=== PATIENT | female | born 1980 | race Caucasian/White ===

== ENCOUNTER 2021-10-19 13:04 | Emergency (ER) | payer BC, SELFPAY ==
[~2021-10-19] VITALS: Ht 165.1 cm; Wt 72.6 kg
--- NOTE | 2021-10-19 13:06 | NUR ---
Pt brought by self, A&Ox4,pt presents to ER with L flank pain since today, afebrile, skin pink and warm, cap refill <3, VSS, respirations even and unlabored.
--- NOTE | 2021-10-19 13:21 | NUR ---
DR MANCILLA AT BEDSIDE FOR EXAM
[2021-10-19 13:22] VITALS: BP_SYST 107
[2021-10-19 13:48] LABS: BILIRUBIN,URINE 1+ (NEGATIVE); BLOOD, URINE 2+ (NEGATIVE); CLARITY/URINE TURBID (CLEAR); COLOR,URINE YELLOW (YELLOW); GLUCOSE,URINE NEGATIVE (NEGATIVE); KETONES,URINE NEGATIVE (NEGATIVE); LEUKOCYTE ESTERASE ,URINE TRACE (NEGATIVE); NITRITE, URINE POSITIVE (NEGATIVE); PROTEIN URINE 1+ (NEGATIVE); UROBILINOGEN,URINE 0.2 (0.2-1.0)
[2021-10-19 13:59] LABS: BACTERIA,URINE MANY /HPF (None Seen)
[2021-10-19 14:00] LABS: MUCUS,URINE 1+ /LPF (None Seen)
[2021-10-19 15:21] LABS: BASOPHILS % (AUTO) 0.9 % (0.0-2.0); EOSINOPHILS % (AUTO) 0.5 % (0.0-4.0); HEMATOCRIT 44.2 % (36-48); HEMOGLOBIN 15.4 g/dL (12.0-16.0); LYMPHOCYTES # (AUTO) 1.2 K/uL (1.0-5.5); LYMPHOCYTES % (AUTO) 27.3 % (20.5-51.5); MEAN CORPUSCULAR HEMOGLOBIN 31 pg (27-31); MEAN CORPUSCULAR HGB CONC 35 % (32-36); MEAN CORPUSCULAR VOLUME 90 fL (79.0-98.0); MONOCYTES # (AUTO) 0.5 K/uL (0.0-1.0); MONOCYTES % (AUTO) 10.2 % (1.7-9.3); NEUTROPHILS # (AUTO) 2.8 K/uL (1.8-7.7); NEUTROPHILS % (AUTO) 61.1 % (40.0-70.0); PLATELET COUNT (AUTO) 254 K/uL (130-430); RED BLOOD CELL COUNT(AUTO) 4.89 MIL/uL (4.2-6.2); RED CELL DISTRIBUTION WIDTH 12.2 % (9.0-15.0); WHITE BLOOD COUNT (AUTO) 4.5 K/uL (4.8-10.8)
[2021-10-19] MEDS ORDERED: NITR-85 PO (15:43)
[2021-10-19] MEDS ORDERED: IBUP-1969 PO (15:43)
[2021-10-19] MEDS ORDERED: cefTRIAXone 1 GM in LIDOCAINE 1%, 20 ML MDV 2.1 ML IM ONE (15:45)
[2021-10-19 15:52] LABS: CALCIUM 8.8 mg/dL (8.4-11.0); CREATININE 0.61 mg/dL (0.55-1.30); POTASSIUM 3.6 mmol/L (3.5-5.1)
[2021-10-19 15:56] LABS: ALBUMIN 3.8 g/dL (3.4-4.8); TOTAL BILIRUBIN 0.5 mg/dL (0.0-1.0)
--- NOTE | 2021-10-19 16:26 | NUR ---
Patient given written and verbal discharge instructions and verbalizes understanding. ER MD discussed with patient the results and treatment provided. Patient in stable condition. ID arm band removed. IV catheter removed intact and dressing applied, no active bleeding. Rx of IBUPROFEN, NITROFURANTOIN given. Patient educated on pain management and to follow up with PMD. Pain Scale . Opportunity for questions provided and answered. Medication side effect fact sheet provided.
[2021-10-19 16:28] VITALS: BP_SYST 107
== END 2021-10-19 16:28 | disposition home or self-care (01) ==
LOC: SED 13:04
DX: N12 Tubulo-interstitial nephritis, not specified as acute or chronic (principal); N83.202 Unspecified ovarian cyst, left side; E03.9 Hypothyroidism, unspecified; Z88.0 Allergy status to penicillin
CPT/HCPCS: 36415; 74176; 76376; 80053; 81000; 81003; 81025; 83690; 85025; 87086; 96372; 99284; J0696; J2001

== ENCOUNTER 2022-01-09 16:38 | Emergency (ER) | payer BC ==
[~2022-01-09] VITALS: Ht 165.1 cm; Wt 74.8 kg
[~2022-01-09 16:38] MED LIST: IBUP-1969 PO; NITR-85 PO
[2022-01-09 16:40] VITALS: BP_SYST 123
--- NOTE | 2022-01-09 16:40 | NUR ---
BROUGHT BACK TO BED #5 AND TRIAGED. REPORT GIVEN TO RAMON
--- NOTE | 2022-01-09 17:00 | NUR ---
Patient AAOx4 from home c/o midline lower back pain at the tailbone x3 days. Patient states she has had this pain in the past but endorses that it is worse this time. Endorses she took ibuprofen with no significant improvement. Denies recent fall/injury/trauma. Reports associated bilateral leg weakness but denies numbness or saddle anesthesia. currently stating 6/10 on the pain scale. stated it has happened in the past and used ibuprofen and hot packs with relief.
--- NOTE | 2022-01-09 17:15 | NUR ---
MD Pagan at bedside with patient.
[2022-01-09] MEDS ORDERED: KETOROLAC TROMETHAMINE 60 MG/2 ML VIAL IM ONE (17:45)
[2022-01-09] MEDS ORDERED: CYCLOBENZAPRINE HCL 10 MG TABLET (FLEXERIL) PO ONE (17:45)
[2022-01-09 19:10] LABS: BILIRUBIN,URINE NEGATIVE (NEGATIVE); BLOOD, URINE 1+ (NEGATIVE); CLARITY/URINE CLEAR (CLEAR); COLOR,URINE YELLOW (YELLOW); GLUCOSE,URINE NEGATIVE (NEGATIVE); KETONES,URINE NEGATIVE (NEGATIVE); LEUKOCYTE ESTERASE ,URINE NEGATIVE (NEGATIVE); NITRITE, URINE NEGATIVE (NEGATIVE); PH,URINE 5.5 (5.0-8.0); PROTEIN URINE NEGATIVE (NEGATIVE); UROBILINOGEN,URINE 0.2 (0.2-1.0)
--- NOTE | 2022-01-09 19:22 | NUR ---
REPORT GIVEN TO CARROLL TO ASSUME CARE.
[2022-01-09 19:23] LABS: BACTERIA,URINE FEW /HPF (None Seen); RBC,URINE 0-3 /HPF (0-3); WBC,URINE 0-3 /HPF (0-3)
[2022-01-09] MEDS ORDERED: HYDROcodone/ACETAMIN 10-325 MG TAB PO ONE (19:45)
[2022-01-09] MEDS ORDERED: IBUP-1971 PO (19:53)
[2022-01-09 20:01] VITALS: BP_SYST 129
--- NOTE | 2022-01-09 20:01 | NUR ---
Patient given written and verbal discharge instructions and verbalizes understanding. ER MD discussed with patient the results and treatment provided. Patient in stable condition. ID arm band removed. Rx of NORCO, IBUPROFEN given. Patient educated on pain management and to follow up with PMD. Pain Scale . Opportunity for questions provided and answered. Medication side effect fact sheet provided.
== END 2022-01-09 20:00 | disposition home or self-care (01) ==
LOC: SED 16:38
DX: M54.50 Low back pain, unspecified (principal); Z88.0 Allergy status to penicillin; F17.210 Nicotine dependence, cigarettes, uncomplicated
CPT/HCPCS: 81000; 81003; 81025; 96372; 99283; J1885

== ENCOUNTER 2024-02-10 14:05 | Emergency (ER) | payer BC ==
[~2024-02-10] VITALS: Ht 165.1 cm; Wt 76.7 kg
[~2024-02-10 14:05] MED LIST changes: +IBUP-1971 PO
[2024-02-10 14:28] VITALS: BP_SYST 121; PULSE 78; RESP 18; TEMP 98.3; O2SAT 98
[2024-02-10] MEDS: KETOROLAC TROMETHAMINE 30 MG VIAL IM ONE (14:58)
[2024-02-10] MEDS: ONDANSETRON 4 MG ODT TAB PO ONE (14:58)
[2024-02-10] MEDS ORDERED: HYDR-3917 PO (15:11)
[2024-02-10] MEDS ORDERED: METH-776 PO (15:11)
[2024-02-10 15:16] VITALS: BP_SYST 121; PULSE 78; RESP 18; TEMP 98.3; O2SAT 98
== END 2024-02-10 15:20 | disposition home or self-care (01) ==
LOC: SED 14:05
DX: M54.16 Radiculopathy, lumbar region (principal); E03.9 Hypothyroidism, unspecified; G43.909 Migraine, unspecified, not intractable, without status migrainosus; Z88.0 Allergy status to penicillin; Z79.899 Other long term (current) drug therapy
CPT/HCPCS: 99283; 81025; 96372; Q0162; J1885

== ENCOUNTER 2024-06-22 16:31 | Emergency (ER) | payer BC ==
[~2024-06-22] VITALS: Ht 165.1 cm; Wt 72.1 kg
[~2024-06-22 16:31] MED LIST changes: +HYDR-3917 PO; +METH-776 PO
[2024-06-22 16:41] VITALS: BP_SYST 108; PULSE 97; RESP 16; TEMP 97.6; O2SAT 98
[2024-06-22] MEDS ORDERED: TRAM50TA2 PO (17:59)
[2024-06-22] MEDS ORDERED: IBUP-1969 PO (17:59)
== END 2024-06-22 18:36 | disposition home or self-care (01) ==
LOC: SED 16:31
DX: M77.32 Calcaneal spur, left foot (principal); E03.9 Hypothyroidism, unspecified; G43.909 Migraine, unspecified, not intractable, without status migrainosus; Z88.0 Allergy status to penicillin; Z79.899 Other long term (current) drug therapy; Z79.2 Long term (current) use of antibiotics
CPT/HCPCS: 99283